=== PATIENT | male | born 1995 | race Hispanic/Latino ===

== ENCOUNTER 2021-05-10 10:48 | Emergency (ER) | payer OTHER ==
[2021-05-10] MEDS ORDERED: Lidocaine 1% PF 5 ML VIAL ONE (10:59)
== END 2021-05-10 12:19 ==
LOC: ERS 10:48 → EEVIPCON 10:48 → ERS 12:19
DX: S01.511A Laceration without foreign body of lip, initial encounter (principal); Z87.891 Personal history of nicotine dependence; W06.XXXA Fall from bed, initial encounter
CPT/HCPCS: 40650